=== PATIENT | male | born 1965 | race Caucasian/White ===

== ENCOUNTER 2023-08-02 07:54 | Day surgery (SDC) | payer MEDICAID ==
[2023-08-02] MEDS: Sodium Chloride 0.9% 1,000 ML IV SCH (08:56)
[2023-08-02] MEDS ORDERED: Propofol 200 MG/20 ML SDV ONE ×3 (09:06→09:32)
[2023-08-02] MEDS ORDERED: fentaNYL 100 MCG/2 ML SDV ONE (09:06)
[2023-08-02] MEDS ORDERED: Midazolam 1 MG/ML 2 ML SDV ONE (09:07)
== END 2023-08-02 11:00 | disposition home or self-care (01) ==
LOC: JP.SDS 07:54
PROVIDERS: ATTEND Surgery
DX: Z12.11 Encounter for screening for malignant neoplasm of colon (principal); D12.3 Benign neoplasm of transverse colon; D50.9 Iron deficiency anemia, unspecified; G47.33 Obstructive sleep apnea (adult) (pediatric); I10 Essential (primary) hypertension; Z98.84 Bariatric surgery status
CPT/HCPCS: 43235; 45385; J2250; J2704; J3010; J7030; 88305